=== PATIENT | male | born 1945 | race Caucasian/White ===

== ENCOUNTER → 2023-07-13 17:06 | Outpatient (REF) | payer OTHER, SELFPAY ==
[2023-07-13 17:54] LABS: % Basophils 0.3 % (0-2); % Eosinophils 0.9 % (0-6); % Immature Granulocytes 0.3 % (0-0.5); % Lymphocytes 28.4 % (20.5-51.1); % Monocytes 7.9 % (1.7-9.3); % Neutrophils 62.2 % (42.2-75.2); Absolute Eosinophils 0.1 10^3/uL (0-0.7); Absolute Lymphocytes 1.9 10^3/uL (1.2-3.4); Absolute Monocytes 0.5 10^3/uL (0.1-0.6); Absolute Neutrophils 4.3 10^3/uL (1.4-6.5); Hematocrit 42.6 % (39.0-52.0); Hemoglobin 15.1 g/dL (13.0-18.0); Mean Corp Hgb Conc. 35.4 g/dL (33.0-37.0); Mean Corpuscular Hgb 31.7 pg (27.0-31.0); Mean Corpuscular Volume 89.3 fL (80.0-94.0); Mean Platelet Volume 10.6 fL (7.4-10.4); Nucleated Red Blood Cells % 0 % (-); Platelet Count 148 10^3/uL (130-400); Red Blood Cell Count 4.77 10^6/uL (4.70-6.10); Red Cell Dist. Width 13.1 % (11.5-14.5); White Blood Cell Count 6.8 10^3/uL (4.8-10.8)
[2023-07-13 18:11] LABS: ALT (SGPT) 23 U/L (0-50); AST (SGOT) 29 U/L (17-59); Albumin 4.3 g/dl (3.5-5.0); Alkaline Phosphatase 56 U/L (38-126); Blood Urea Nitrogen 21 mg/dl (9-20); Calcium 9.7 mg/dl (8.4-10.2); Carbon Dioxide 24 mmol/L (22-30); Chloride 107 mmol/L (98-107); Glucose 99 mg/dl (70-99); Potassium 4.1 mmol/L (3.5-5.1); Sodium 136 mmol/L (135-145); Total Bilirubin 0.9 mg/dl (0.2-1.3); Total Protein 6.8 g/dl (6.3-8.2); eGFR > 60.00
== END ==
LOC: REG 17:06
PROVIDERS: ATTENDING PHYSICIAN Internal Medicine Rheumatology; FAMILY PHYSICIAN Internal Medicine Geriatric Medicine
DX: M48.10 Ankylosing hyperostosis [Forestier], site unspecified (principal); M25.60 Stiffness of unspecified joint, not elsewhere classified; Z79.1 Long term (current) use of non-steroidal anti-inflammatories (NSAID)
CPT/HCPCS: 36415; 80053; 85025

== ENCOUNTER → 2023-12-25 09:40 | Outpatient (REF) | payer OTHER, SELFPAY ==
[2023-12-25 10:24] LABS: Urine Albumin Negative (Neg - Trace); Urine Bilirubin Negative (Negative); Urine Character Clear (Clear); Urine Color Yellow; Urine Glucose Negative (Negative); Urine Ketone Negative (Negative); Urine Leukocyte Negative (Negative); Urine Nitrite Negative (Negative); Urine Occult Blood Negative (Negative); Urine Urobilinogen Negative (Neg - 1+); Urine pH 6.5 (5.0-9.0)
[2023-12-25 10:37] LABS: % Basophils 0.4 % (0-2); % Eosinophils 1.2 % (0-6); % Immature Granulocytes 0.4 % (0-0.5); % Lymphocytes 25.9 % (20.5-51.1); % Monocytes 7.8 % (1.7-9.3); % Neutrophils 64.3 % (42.2-75.2); Absolute Eosinophils 0.1 10^3/uL (0-0.7); Absolute Lymphocytes 1.3 10^3/uL (1.2-3.4); Absolute Monocytes 0.4 10^3/uL (0.1-0.6); Absolute Neutrophils 3.1 10^3/uL (1.4-6.5); Hematocrit 44.9 % (39.0-52.0); Hemoglobin 15.4 g/dL (13.0-18.0); Mean Corp Hgb Conc. 34.3 g/dL (33.0-37.0); Mean Corpuscular Hgb 30.8 pg (27.0-31.0); Mean Corpuscular Volume 89.8 fL (80.0-94.0); Nucleated Red Blood Cells % 0 % (-); Red Cell Dist. Width 13.5 % (11.5-14.5); White Blood Cell Count 4.9 10^3/uL (4.8-10.8)
[2023-12-25 10:55] LABS: ALT (SGPT) 32 U/L (0-50); AST (SGOT) 32 U/L (17-59); Albumin 4.6 g/dl (3.5-5.0); Alkaline Phosphatase 55 U/L (38-126); Blood Urea Nitrogen 20 mg/dl (9-20); Calcium 9.5 mg/dl (8.4-10.2); Carbon Dioxide 28 mmol/L (22-30); Chloride 104 mmol/L (98-107); Glucose 100 mg/dl (70-99); HDL Cholesterol 48 mg/dl; LDL Cholesterol, Calculated 123 mg/dl; Potassium 4.8 mmol/L (3.5-5.1); Sodium 142 mmol/L (135-145); Total Bilirubin 1.2 mg/dl (0.2-1.3); Total Cholesterol 186 mg/dl (50-199); Total Protein 7.1 g/dl (6.3-8.2); Triglyceride 78 mg/dl (10-149); Very Low Density Lipoprotein 15 mg/dl (0-30); eGFR > 60.00
[2023-12-25 11:08] LABS: Vitamin D, 25-OH*** 70.9 ng/mL (30-80)
== END ==
LOC: REG 09:40
PROVIDERS: ATTENDING PHYSICIAN Internal Medicine Geriatric Medicine
DX: Z00.00 Encounter for general adult medical examination without abnormal findings (principal); I10 Essential (primary) hypertension; R20.0 Anesthesia of skin; E78.2 Mixed hyperlipidemia; R74.8 Abnormal levels of other serum enzymes; I36.1 Nonrheumatic tricuspid (valve) insufficiency; I34.0 Nonrheumatic mitral (valve) insufficiency; H61.23 Impacted cerumen, bilateral; Z12.5 Encounter for screening for malignant neoplasm of prostate; M48.10 Ankylosing hyperostosis [Forestier], site unspecified; G58.9 Mononeuropathy, unspecified; Z13.29 Encounter for screening for other suspected endocrine disorder; J32.9 Chronic sinusitis, unspecified; G54.0 Brachial plexus disorders
CPT/HCPCS: 36415; 80053; 80061; 81003; 82306; 85025

== ENCOUNTER 2024-04-04 07:57 | Emergency (ER) | payer OTHER, SELFPAY ==
[2024-04-04 07:58] VITALS: BP 153/94
[2024-04-04 08:25] LABS: % Basophils 0.1 % (0-2); % Eosinophils 0.1 % (0-6); % Immature Granulocytes 0.6 % (0-0.5); % Lymphocytes 12.3 % (20.5-51.1); % Neutrophils 79.9 % (42.2-75.2); Absolute Immature Granulocytes 0.1 10^3/uL (0-0.05); Absolute Lymphocytes 1.2 10^3/uL (1.2-3.4); Absolute Monocytes 0.7 10^3/uL (0.1-0.6); Hematocrit 43.5 % (39.0-52.0); Hemoglobin 14.8 g/dL (13.0-18.0); Mean Corpuscular Hgb 30.8 pg (27.0-31.0); Mean Corpuscular Volume 90.6 fL (80.0-94.0); Mean Platelet Volume 10.8 fL (7.4-10.4); Nucleated Red Blood Cells % 0 % (-); Platelet Count 167 10^3/uL (130-400); Red Cell Dist. Width 13.1 % (11.5-14.5)
[2024-04-04 08:39] LABS: COVID-19 Antigen Negative (Negative)
[2024-04-04 08:41] LABS: ALT (SGPT) 26 U/L (0-50); AST (SGOT) 29 U/L (17-59); Albumin 4.4 g/dl (3.5-5.0); Alkaline Phosphatase 70 U/L (38-126); Blood Urea Nitrogen 19 mg/dl (9-20); Calcium 9.1 mg/dl (8.4-10.2); Carbon Dioxide 28 mmol/L (22-30); Chloride 104 mmol/L (98-107); Glucose 120 mg/dl (70-99); Potassium 4.4 mmol/L (3.5-5.1); Sodium 142 mmol/L (135-145); Total Bilirubin 1.3 mg/dl (0.2-1.3); Total Protein 7.1 g/dl (6.3-8.2); eGFR > 60.00
[2024-04-04 10:00] VITALS: BP 141/80
--- NOTE | 2024-04-04 10:29 | ED.GENMED ---
History of Present Illness
<EVANGELINA Chapni Jr. Last Filed: 04/04/24 12:26>
General
Chief Complaint: Weakness
Source: patient
Exam Limitations: none
Time Seen by Provider: 04/04/24 08:25
Nursing documentation reviewed up to this point in time: agreed with
History of Present Illness
History of Present Illness:
79-year-old male past medical history of hypertension COPD presenting to the emergency department today with concerns of generalized weakness fatigue worsening over the past 2 weeks. Diagnosed with COVID roughly 3 weeks ago had a relatively mild
course over the past week he has been increasingly weak and tired and apparently laid on the floor this morning unable to get up secondary to generalized weakness. He seems very drowsy according to the . He denies any specific symptoms
otherwise.
Review of Systems
<EVANGELINA Chapin Jr. Last Filed: 04/04/24 12:26>
Review of Systems
Allergies reviewed?: Yes
All Other Systems: ROS reviewed and negative except as documented in HPI and ROS
Phy Exam
<EVANGELINA Chapin Jr. Last Filed: 04/04/24 12:26>
Physical Exam
Physical Exam:
GENERAL: Alert , drowsy
EYE: pupils equal and reactive
NECK: Supple, no significant adenopathy.
ENT: o/p clr, mmm.
CARDIAC: Regular rate and rhythm .
LUNGS: Clear breath sounds bilaterally, no acute respiratory distress, no wheezes/rales/rhonchi
ABDOMEN: Soft, without focal tenderness, no r/g, no cvat
NEUROLOGICAL: Patient is somewhat drowsy but is directable to verbal stimulation. Moving all extremities no focal neuro deficits
SKIN: Warm and dry, skin intact.
MUSCULOSKELETAL: No edema, well perfused.
PSYCH: Drowsy
Course
<EVANGELINA Chapin Jr. Last Filed: 04/04/24 12:26>
Orders/Labs/Results
Orders:
Orders
04/04/24 08:10
COVID-19 Antigen Urgent
Source: Nasal Swab
Complete Blood Count/With Diff Urgent
Comprehensive Metabolic Panel Urgent
Creatine Phosphokinase Urgent
TSH Reflex To Free T4 Urgent
Influenza A+B Rapid Molecular Urgent
ESTHER Source: Nasal Swab
Specimen Description:
04/04/24 08:25
EKG [Electrocardiogram (*1)] Urgent
Reason for Study: Fatigue / Weakness
Urinalysis Reflex To Culture Urgent
Chest [CR Chest - 2 Views ] Urgent
Comment:
Reason For Exam: cough uri
04/04/24 08:26
EKG- Treatment ONCE
04/04/24 08:38
Add On- LAB Urgent
Tests Added?: creatine phosphokinase and TSH Reflex to Free T4
04/04/24 10:09
CT Head W/o Iv Contrast Urgent
Comment:
Reason For Exam: AMS
Abnormal Lab Results
04/04/24
08:10
MPV 10.8 H fL
(7.4-10.4)
Abs Immat Gran (auto) 0.1 H 10^3/uL
(0-0.05)
Absolute Neuts (auto) 8.0 H 10^3/uL
(1.4-6.5)
Absolute Monos (auto) 0.7 H 10^3/uL
(0.1-0.6)
Immature Gran % 0.6 H %
(0-0.5)
Neutrophils % 79.9 H %
(42.2-75.2)
Lymphocytes % 12.3 L %
(20.5-51.1)
Glucose 120 H mg/dl
(70-99)
04/04/24 08:10
04/04/24 08:10
Vital Signs
Initial and Last Documented VS:
Initial Vital Signs
Temp Pulse Resp BP Pulse Ox
98.1 F 83 20 153/94 97
04/04/24 07:58 04/04/24 07:58 04/04/24 07:58 04/04/24 07:58 04/04/24 07:58
Last Documented Vital Signs
Temp Pulse Resp BP Pulse Ox
98.1 F 74 21 141/80 97
04/04/24 07:58 04/04/24 10:00 04/04/24 10:00 04/04/24 10:00 04/04/24 07:58
<Manolo Schulz, DO - Last Filed: 04/04/24 11:25>
Orders/Labs/Results
Orders:
Orders
04/04/24 08:10
COVID-19 Antigen Urgent
Source: Nasal Swab
Complete Blood Count/With Diff Urgent
Comprehensive Metabolic Panel Urgent
Creatine Phosphokinase Urgent
TSH Reflex To Free T4 Urgent
Influenza A+B Rapid Molecular Urgent
ESTHER Source: Nasal Swab
Specimen Description:
04/04/24 08:25
EKG [Electrocardiogram (*1)] Urgent
Reason for Study: Fatigue / Weakness
Urinalysis Reflex To Culture Urgent
Chest [CR Chest - 2 Views ] Urgent
Comment:
Reason For Exam: cough uri
04/04/24 08:26
EKG- Treatment ONCE
04/04/24 08:38
Add On- LAB Urgent
Tests Added?: creatine phosphokinase and TSH Reflex to Free T4
04/04/24 10:09
CT Head W/o Iv Contrast Urgent
Comment:
Reason For Exam: AMS
Abnormal Lab Results
04/04/24
08:10
MPV 10.8 H fL
(7.4-10.4)
Abs Immat Gran (auto) 0.1 H 10^3/uL
(0-0.05)
Absolute Neuts (auto) 8.0 H 10^3/uL
(1.4-6.5)
Absolute Monos (auto) 0.7 H 10^3/uL
(0.1-0.6)
Immature Gran % 0.6 H %
(0-0.5)
Neutrophils % 79.9 H %
(42.2-75.2)
Lymphocytes % 12.3 L %
(20.5-51.1)
Glucose 120 H mg/dl
(70-99)
04/04/24 08:10
04/04/24 08:10
Vital Signs
Initial and Last Documented VS:
Initial Vital Signs
Temp Pulse Resp BP Pulse Ox
98.1 F 83 20 153/94 97
04/04/24 07:58 04/04/24 07:58 04/04/24 07:58 04/04/24 07:58 04/04/24 07:58
Last Documented Vital Signs
Temp Pulse Resp BP Pulse Ox
98.1 F 74 21 141/80 97
04/04/24 07:58 04/04/24 10:00 04/04/24 10:00 04/04/24 10:00 04/04/24 07:58
<Bobby Kemp Jr., PA-C - Last Filed: 04/04/24 12:26>
MDM/Problems Addressed
MDM/Problems Addressed:
79-year-old male presenting to the emergency department today with concerns of generalized weakness fatigue worsening over the past week. Diagnosed with COVID 3 weeks ago did okay course over the past and increasingly weak tired this morning unable
to walk or stand secondary to significant weakness and fatigue. On examination patient is drowsy. Vital signs are normal. He is able to follow basic commands. Initial nursing lead workup with labs without acute abnormalities. Patient is
conservatively altered considering the CT scan was ordered. This did show a subdural on the right side. Neurosurgery was immediately contacted to [facility] recommending transfer, transfer was initiated with manual however they have no ICU beds
they recommended calling elsewhere for transfer. [facility] was then contacted and accepted the patient.
<Manolo Schulz, - Last Filed: 04/04/24 11:25>
*Critical Care Note
Total Time (30-74mins, 75-104mins- exclusive of procedures): 45
comment:
Critical care statement: A total of 45 minutes of critical care time was provided for this patient. This includes management of unstable vital signs, evaluation of the patient at bedside, reviewing the patient's pertinent medical records, discussion
with consultants, review of old EKGs and review of pertinent medical records. This time with separate from time utilized to perform the aforementioned documented procedures
ED Attending Note
<Bobby Kemp Jr., PA-C - Last Filed: 04/04/24 12:26>
-
Portions of this chart may have been created with voice recognition software.� Occasional wrong word or��sound alike� substitutions may have occurred due to the inherent limitations of voice recognition software.
<Manolo Schulz, - Last Filed: 04/04/24 11:25>
ED Attending Note
Patient seen and examined by attending physician: Yes
ED Attending Note:
I have reviewed and agree with history and treatment plan by Tae Kemp. My exam revealed 79-year-old male with confusion as to the year, but aware of place. He denies falling his morning, however was found on the floor by his . No other
neurologic deficits. CT head consistent with large acute on chronic subdural hematoma with mass effect. Attempted transfer to [facility], but no beds available. Call placed to [facility] transfer center.
Discharge Plan
Departure
Patient Disposition: Acute Care Hospital
Date of Disposition: 04/04/24
Time of Disposition: 11:24
Patient with high blood pressure during this ER visit?: Yes
Condition: Fair
Discharge Problem:
Acute subdural hematoma
Referrals:
Chago Diaz MD [Family Provider] -
Hospital Transfer
Other hospital: [facility]
I certify that the patient requires transfer: Yes
Discussed case with accepting physician: Yes
Reason for transfer: higher level of care and specialties available
Interventions
Interventions:
*Risk Screen - Suicide Last Done: 04/04/24 07:58
*General Assessment Last Done: 04/04/24 07:58
*Neglect/Abuse Screening Last Done: 04/04/24 07:58
*ED COVID-19 Vaccine History Last Done: 04/04/24 08:30
ED- Cardiac Assessment Last Done: 04/04/24 08:30
ED- Neurological Assessment Last Done: 04/04/24 08:30
ED- Pulmonary Assessment Last Done: 04/04/24 08:30
Discharge Date and Time
Print Language: AMHARIC
[2024-04-04 11:03] VITALS: BP 159/76
[2024-04-04 11:27] LABS: Creatine Phosphokinase 156 U/L (55-170)
[2024-04-04 11:29] VITALS: BMI 27.8
[2024-04-04 12:00] VITALS: BP 150/73
== END 2024-04-04 12:36 | disposition short-term general hospital (02) ==
LOC: EMR 07:57
PROVIDERS: Physician Assistant; EMERGENCY PHYSICIAN Emergency Medicine; FAMILY PHYSICIAN Internal Medicine Geriatric Medicine
DX: S06.5XAA Traumatic subdural hemorrhage with loss of consciousness status unknown, initial encounter (principal); X58.XXXA Exposure to other specified factors, initial encounter; J44.9 Chronic obstructive pulmonary disease, unspecified; I10 Essential (primary) hypertension; Z86.16 Personal history of COVID-19
CPT/HCPCS: 99291; 70450; 71046; 80053; 82550; 84443; 85025; 87502; 87811; 93005

== ENCOUNTER → 2024-08-23 10:24 | Outpatient (REF) | payer OTHER, SELFPAY ==
[2024-08-23 11:39] LABS: % Basophils 0.2 % (0-2); % Immature Granulocytes 1.2 % (0-0.5); % Lymphocytes 30.2 % (20.5-51.1); % Monocytes 9.1 % (1.7-9.3); % Neutrophils 58.3 % (42.2-75.2); Absolute Eosinophils 0.1 10^3/uL (0-0.7); Absolute Immature Granulocytes 0.1 10^3/uL (0-0.05); Absolute Lymphocytes 1.5 10^3/uL (1.2-3.4); Absolute Monocytes 0.5 10^3/uL (0.1-0.6); Hematocrit 44.2 % (39.0-52.0); Hemoglobin 14.8 g/dL (13.0-18.0); Mean Corp Hgb Conc. 33.5 g/dL (33.0-37.0); Mean Corpuscular Hgb 30.6 pg (27.0-31.0); Mean Corpuscular Volume 91.3 fL (80.0-94.0); Mean Platelet Volume 11.7 fL (7.4-10.4); Nucleated Red Blood Cells % 0 % (-); Platelet Count 118 10^3/uL (130-400); Red Blood Cell Count 4.84 10^6/uL (4.70-6.10); Red Cell Dist. Width 13.5 % (11.5-14.5); White Blood Cell Count 5.1 10^3/uL (4.8-10.8)
[2024-08-23 11:40] LABS: Urine Albumin 1+ (Neg - Trace); Urine Bilirubin Negative (Negative); Urine Character Clear (Clear); Urine Color Yellow; Urine Glucose Negative (Negative); Urine Ketone Negative (Negative); Urine Leukocyte Negative (Negative); Urine Nitrite Negative (Negative); Urine Occult Blood Negative (Negative); Urine Specific Gravity 1.015 (<1.030); Urine Urobilinogen Negative (Neg - 1+); Urine pH 6.5 (5.0-9.0)
[2024-08-23 11:54] LABS: Urine Mucus Few
[2024-08-23 11:56] LABS: Urine Squamous Cell 0-2 /LPF (Few)
[2024-08-23 11:57] LABS: Urine Bacteria Few (Negative); Urine Red Blood Cell 0-2 /HPF (0-2); Urine White Cell 0-2 /HPF (0-5)
[2024-08-23 12:18] LABS: ALT (SGPT) 22 U/L (0-50); AST (SGOT) 25 U/L (17-59); Albumin 4.7 g/dl (3.5-5.0); Alkaline Phosphatase 58 U/L (38-126); Blood Urea Nitrogen 20 mg/dl (9-20); Calcium 9.3 mg/dl (8.4-10.2); Carbon Dioxide 26 mmol/L (22-30); Chloride 109 mmol/L (98-107); Glucose 98 mg/dl (70-99); HDL Cholesterol 40 mg/dl; LDL Cholesterol, Calculated 108 mg/dl; Sodium 142 mmol/L (135-145); Total Bilirubin 1.5 mg/dl (0.2-1.3); Total Cholesterol 161 mg/dl (50-199); Total Protein 7.3 g/dl (6.3-8.2); Triglyceride 69 mg/dl (10-149); Very Low Density Lipoprotein 13 mg/dl (0-30); eGFR > 60.00
[2024-08-23 12:23] LABS: Vitamin D, 25-OH*** 73.8 ng/mL (30-80)
[2024-08-23 12:36] LABS: PSA, Total - Screen 0.55 ng/ml (0.0-4.0)
== END ==
LOC: REG 10:24
PROVIDERS: ATTENDING PHYSICIAN Internal Medicine Rheumatology; FAMILY PHYSICIAN Internal Medicine Geriatric Medicine
DX: I73.9 Peripheral vascular disease, unspecified (principal); E78.2 Mixed hyperlipidemia; I10 Essential (primary) hypertension; I36.1 Nonrheumatic tricuspid (valve) insufficiency; I34.0 Nonrheumatic mitral (valve) insufficiency; H61.23 Impacted cerumen, bilateral; M48.10 Ankylosing hyperostosis [Forestier], site unspecified; G58.9 Mononeuropathy, unspecified; S06.5XAA Traumatic subdural hemorrhage with loss of consciousness status unknown, initial encounter; I62.00 Nontraumatic subdural hemorrhage, unspecified; Z13.89 Encounter for screening for other disorder
CPT/HCPCS: 36415; 80053; 80061; 81003; 81015; 82306; 85025; G0103

== ENCOUNTER → 2025-03-10 13:40 | Outpatient (REF) | payer OTHER, SELFPAY ==
[2025-03-10 18:15] LABS: TSH 1.32 uIU/ml (0.47-4.68)
== END ==
LOC: RCS 13:40
PROVIDERS: ATTENDING PHYSICIAN Internal Medicine Cardiovascular Disease; FAMILY PHYSICIAN Internal Medicine Geriatric Medicine
DX: I34.0 Nonrheumatic mitral (valve) insufficiency (principal)
CPT/HCPCS: 36415; 84443; 93306

== ENCOUNTER → 2025-03-17 09:53 | Outpatient (REF) | payer OTHER, SELFPAY | LOC: RCS 09:53 | PROVIDERS: ATTENDING PHYSICIAN Internal Medicine Cardiovascular Disease; FAMILY PHYSICIAN Internal Medicine Geriatric Medicine | DX: I49.3 Ventricular premature depolarization (principal) | CPT/HCPCS: 93017; 93350 ==